=== PATIENT | male | born 1950 | race Caucasian/White ===

== ENCOUNTER 2023-06-24 07:10 | Day surgery (SDC) | payer MEDICARE ==
[2023-06-24] MEDS ORDERED: Propofol 200 MG/20 ML SDV ONE ×2 (07:22→09:25)
[2023-06-24] MEDS ORDERED: fentaNYL 100 MCG/2 ML SDV ONE (07:22)
[2023-06-24 07:42] LABS: HEMOGLOBIN 12.5 g/dL (12.9-16.9); MEAN CORPUSCULAR HEMOGLOBIN 34.4 pg (31.6-35.5); MEAN CORPUSCULAR HGB CONC 35.7 g/dL (31.6-35.5); MEAN CORPUSCULAR VOLUME 96.4 fL (81.4-99.0); RED BLOOD CELL COUNT 3.63 M/uL (4.14-5.76); WHITE BLOOD CELL COUNT,WBC 10.1 K/uL (3.2-11.0)
[2023-06-24 07:58] LABS: PROTHROMBIN TIME 10.5 sec (9.2-10.6)
[2023-06-24] MEDS ORDERED: Lactated Ringers 1,000 ML IV SCH (08:00)
[2023-06-24 08:03] LABS: A/G RATIO 1.4 (1.2-2.2); ALANINE AMINOTRANSFERASE,ALT 45 U/L (12-78); ALBUMIN 3.9 g/dL (3.4-5.0); ALKALINE PHOSPHATASE 94 U/L (46-116); ASPARTATE AMNIOTRANSFERASE,AST 39 U/L (15-37); BILIRUBIN TOTAL 1.6 mg/dL (0.2-1.0); BLOOD UREA NITROGEN,BUN 19 mg/dL (7-18); CALCIUM 8.6 mg/dL (8.5-10.1); CARBON DIOXIDE,CO2 22 mmol/L (21-32); CHLORIDE,CL 101 mmol/L (100-108); CREATININE 1.5 mg/dL (0.8-1.3); EST CRCL DRUG DOSING (CG) 43.21 mL/min; ESTIMATED GFR 49 mL/min (>60); GLUCOSE RANDOM 171 mg/dL (74-106); POTASSIUM,K 3.8 mmol/L (3.6-5.2); PROTEIN TOTAL,TP 6.7 g/dL (6.4-8.2); SODIUM,NA 137 mmol/L (140-148)
[2023-06-24 08:04] LABS: ANION GAP 17.8 mmol/L (5.0-14.0)
== END 2023-06-24 10:40 | disposition home or self-care (01) ==
LOC: JP.SDS 07:10
PROVIDERS: ATTEND Student in an Organized Health Care Education/Training Program
DX: D12.0 Benign neoplasm of cecum (principal); K63.5 Polyp of colon; I10 Essential (primary) hypertension; E78.5 Hyperlipidemia, unspecified; Z79.899 Other long term (current) drug therapy
CPT/HCPCS: 36415; 45380; 80053; 85027; 85610; 88305; 93005; J2704; J3010; J7120

== ENCOUNTER 2023-07-07 22:10 | Emergency (ER) | payer MEDICARE ==
[2023-07-07 22:40] LABS: HEMATOCRIT 34.6 % (38.4-49.7); MEAN CORPUSCULAR HEMOGLOBIN 34.4 pg (31.6-35.5); MEAN CORPUSCULAR HGB CONC 34.7 g/dL (31.6-35.5); MEAN CORPUSCULAR VOLUME 99.1 fL (81.4-99.0); PLATELET COUNT,PLT 56 K/uL (130-375); RED BLOOD CELL COUNT 3.49 M/uL (4.14-5.76); WHITE BLOOD CELL COUNT,WBC 10.1 K/uL (3.2-11.0)
[2023-07-07 23:11] LABS: ANION GAP 16.2 mmol/L (5.0-14.0); C-REACTIVE PROTEIN 2.25 mg/dL (<0.50); CALCIUM 8.2 mg/dL (8.5-10.1); CREATININE 1.7 mg/dL (0.8-1.3); EST CRCL DRUG DOSING (CG) 38.12 mL/min; POTASSIUM,K 4.2 mmol/L (3.6-5.2); TROPONIN I HIGH SENSITIVITY 10.9 pg/mL (<=60.3)
[2023-07-07 23:27] LABS: BAND PERCENT MAN 3 % (5-11); LYMPHOCYTES ABSOLUTE MAN 5.86 K/uL (0.8-3.3); MONOCYTES PERCENT MAN 4 % (2-6); NEUTROPHILS ABSOLUTE MAN 3.54 K/uL (1.0-7.6); SEG NEUTROPHILS PERCENT MAN 35 % (36-66)
[2023-07-07 23:28] LABS: LYMPHOCYTES PERCENT MAN 58 % (24-44)
[2023-07-07] MEDS ORDERED: Sodium Chloride 0.9% 1,000 ML IV ONE (23:42)
== END 2023-07-08 03:18 | disposition home or self-care (01) ==
LOC: JP.ED 22:10
DX: U07.1 COVID-19 (principal); E86.0 Dehydration; E78.00 Pure hypercholesterolemia, unspecified; I12.9 Hypertensive chronic kidney disease with stage 1 through stage 4 chronic kidney disease, or unspecified chronic kidney disease; N18.9 Chronic kidney disease, unspecified; E66.9 Obesity, unspecified; Z68.41 Body mass index [BMI] 40.0-44.9, adult; Z88.0 Allergy status to penicillin; Z88.1 Allergy status to other antibiotic agents; Z88.5 Allergy status to narcotic agent; Z88.6 Allergy status to analgesic agent; Z79.82 Long term (current) use of aspirin; Z79.899 Other long term (current) drug therapy
CPT/HCPCS: 36415; 80048; 83605; 84484; 85025; 86140; 93005; 96360; 99285; J7030

== ENCOUNTER 2025-01-04 12:22 | Emergency (ER) | payer MEDICARE ==
[2025-01-04 13:23] LABS: BASOPHILS ABSOLUTE AUTO 0.05 K/uL (0.00-0.10); BASOPHILS PERCENT AUTO 0.4 % (0.1-1.3); EOSINOPHILS ABSOLUTE AUTO 0.12 K/uL (0.00-0.40); EOSINOPHILS PERCENT AUTO 0.9 % (0.0-5.4); HEMATOCRIT 36.5 % (38.4-49.7); HEMOGLOBIN 12.5 g/dL (12.9-16.9); IMMATURE GRAN PERCENT AUTO 0.2 % (0.0-0.7); LYMPHOCYTES ABSOLUTE AUTO 10.13 K/uL (0.8-3.3); LYMPHOCYTES PERCENT AUTO 79.2 % (11.4-47.7); MEAN CORPUSCULAR HEMOGLOBIN 35.9 pg (31.6-35.5); MEAN CORPUSCULAR HGB CONC 34.2 g/dL (31.6-35.5); MEAN CORPUSCULAR VOLUME 104.9 fL (81.4-99.0); MONOCYTES ABSOLUTE AUTO 0.27 K/uL (0.20-0.90); MONOCYTES PERCENT AUTO 2.1 % (3.3-12.6); NEUTROPHILS PERCENT AUTO 17.2 % (40.0-78.1); PLATELET COUNT,PLT 56 K/uL (130-375); RED BLOOD CELL COUNT 3.48 M/uL (4.14-5.76); WHITE BLOOD CELL COUNT,WBC 12.8 K/uL (3.2-11.0)
[2025-01-04 13:29] LABS: IMMATURE GRAN ABSOLUTE AUTO 0.02 K/uL (0.00-0.23)
[2025-01-04 13:40] LABS: PROTHROMBIN TIME 10.1 sec (9.2-10.6)
[2025-01-04 13:45] LABS: CALCIUM 9.4 mg/dL (8.5-10.1); CREATININE 1.6 mg/dL (0.8-1.3); EST CRCL DRUG DOSING (CG) 39.89 mL/min; POTASSIUM,K 4.6 mmol/L (3.6-5.2)
[2025-01-04] MEDS: diphenhydrAMINE 50 MG/ML SDV IVPUSH ONE (13:49)
[2025-01-04] MEDS: Prochlorperazine 10 MG/2 ML SDV IVPUSH ONE (13:49)
[2025-01-04 13:52] LABS: ANION GAP 17.6 mmol/L (5.0-14.0)
[2025-01-04] MEDS: fentaNYL 50 MCG/ML SDV IVPUSH ONE (16:03)
== END 2025-01-04 16:53 | disposition home or self-care (01) ==
LOC: JP.ED 12:22
DX: G44.86 Cervicogenic headache (principal); E78.00 Pure hypercholesterolemia, unspecified; I10 Essential (primary) hypertension; E11.9 Type 2 diabetes mellitus without complications; Z86.16 Personal history of COVID-19; Z88.0 Allergy status to penicillin; Z88.1 Allergy status to other antibiotic agents; Z88.8 Allergy status to other drugs, medicaments and biological substances; Z88.5 Allergy status to narcotic agent; Z79.82 Long term (current) use of aspirin; Z79.899 Other long term (current) drug therapy
CPT/HCPCS: 36415; 70450; 80048; 82947; 85025; 85610; 96374; 96375; 99284; J0780; J1200; J3010

== ENCOUNTER 2025-02-24 13:08 | Emergency (ER) | payer MEDICARE ==
[2025-02-24] MEDS: fentaNYL 100 MCG/2 ML SDV IM ONE (15:40)
[2025-02-24 17:02] LABS: PLATELET COUNT,PLT 71 K/uL (130-375); RED BLOOD CELL COUNT 3.43 M/uL (4.14-5.76); WHITE BLOOD CELL COUNT,WBC 13.7 K/uL (3.2-11.0)
[2025-02-24 17:27] LABS: LACTIC ACID 1.1 mmol/L (0.4-2.0)
[2025-02-24 17:33] LABS: A/G RATIO 1.1 (1.2-2.2); ALANINE AMINOTRANSFERASE,ALT 40 U/L (12-78); ASPARTATE AMNIOTRANSFERASE,AST 31 U/L (15-37); BILIRUBIN TOTAL 0.9 mg/dL (0.2-1.0); BLOOD UREA NITROGEN,BUN 29 mg/dL (7-18); CARBON DIOXIDE,CO2 24 mmol/L (21-32); CHLORIDE,CL 104 mmol/L (100-108); CREATININE 1.5 mg/dL (0.8-1.3); EST CRCL DRUG DOSING (CG) 41.90 mL/min; ESTIMATED GFR 48 mL/min (>60); GLUCOSE RANDOM 136 mg/dL (74-106); POTASSIUM,K 4.4 mmol/L (3.6-5.2); PROTEIN TOTAL,TP 7.0 g/dL (6.4-8.2); SODIUM,NA 139 mmol/L (140-148)
[2025-02-24 17:45] LABS: BAND ABSOLUTE MAN 0.14 K/uL; BAND PERCENT MAN 1 % (5-11); EOSINOPHILS ABSOLUTE MAN 0.27 K/uL (0.00-0.40); EOSINOPHILS PERCENT MAN 2 % (2-4); LYMPHOCYTES ABSOLUTE MAN 9.45 K/uL (0.8-3.3); MONOCYTES ABSOLUTE MAN 0.55 K/uL (0.20-0.90); MONOCYTES PERCENT MAN 4 % (2-6); NEUTROPHILS ABSOLUTE MAN 3.29 K/uL (1.0-7.6); SEG NEUTROPHILS PERCENT MAN 24 % (36-66)
[2025-02-24 17:47] LABS: ATYPICAL LYMPHOCYTES FEW
[2025-02-24 17:49] LABS: LYMPHOCYTES PERCENT MAN 69 % (24-44)
[2025-02-27 16:40] LABS: ANAPLASMA PHAGOCYTOPHILUM PCR Not Detected; BABESIA MICROTI BY PCR Not Detected; EHRLICHIA CHAFFEENSIS BY PCR Not Detected; EHRLICHIA EWINGII/CANIS BY PCR Not Detected; EHRLICHIA MURIS-LIKE BY PCR Not Detected
== END 2025-02-24 18:47 | disposition home or self-care (01) ==
LOC: JP.ED 13:08
DX: G44.86 Cervicogenic headache (principal); I13.0 Hypertensive heart and chronic kidney disease with heart failure and stage 1 through stage 4 chronic kidney disease, or unspecified chronic kidney disease; I50.9 Heart failure, unspecified; N18.9 Chronic kidney disease, unspecified; E11.22 Type 2 diabetes mellitus with diabetic chronic kidney disease; E78.00 Pure hypercholesterolemia, unspecified; Z86.16 Personal history of COVID-19; Z88.1 Allergy status to other antibiotic agents; Z88.5 Allergy status to narcotic agent; Z88.0 Allergy status to penicillin; Z79.899 Other long term (current) drug therapy; Z79.82 Long term (current) use of aspirin; Z79.4 Long term (current) use of insulin
CPT/HCPCS: 70450; 72125; 76377; 80053; 83605; 85025; 86140; 86618; 87468; 87469; 87484; 87798; 88104; 96372; 99284; J3010; 36415